=== PATIENT | female | born 1975 | race Two or more races ===

== ENCOUNTER 2019-02-23 06:12 | Inpatient (IN) | payer OTHER ==
[2019-02-20 12:22] VITALS: BMI 32.0
[2019-02-23] MEDS ORDERED: fentaNYL CITRATE 250 MCG/5 ML VIAL ONE (07:03)
[2019-02-23] MEDS ORDERED: PROPOFOL 20 ML ONE ×2 (07:04)
[2019-02-23] MEDS ORDERED: SUCCINYLCHOLINE CHLORIDE 200 MG/10 ML SYRINGE ONE (07:04)
[2019-02-23] MEDS ORDERED: ROCURONIUM BROMIDE 50 MG/5 ML SYRINGE ONE (07:04)
[2019-02-23] MEDS ORDERED: MIDAZOLAM HCL 2 MG/2 ML SINGLE DOSE VIAL ONE ×3 (07:04→07:25)
[2019-02-23] MEDS ORDERED: KETOROLAC TROMETHAMINE 30 MG/1 ML VIAL ONE (07:06)
[2019-02-23] MEDS ORDERED: SODIUM CHLORIDE 0.9% P/F 10 ML VIAL IJ ONE (07:06)
[2019-02-23] MEDS ORDERED: DEXAMETHASONE SOD PHOSPHATE 4 MG/1 ML VIAL ONE (07:06)
[2019-02-23] MEDS ORDERED: LIDOCAINE HCL/PF 2% SDV 5ML VIAL ONE (07:06)
[2019-02-23] MEDS ORDERED: ceFAZolin SODIUM 1 GM VIAL ONE (07:06)
[2019-02-23] MEDS ORDERED: DEXAMETHASONE SOD PHOSPHATE/PF 10 MG/ML SDV ONE ×2 (07:24→08:11)
[2019-02-23] MEDS ORDERED: VASOPRESSIN 20 UNITS/ML VIAL IV ONE (07:27)
--- NOTE | 2019-02-23 07:37 | HP ---
History & Physical Update - History History: No Change - Physical Physical: No Change - Assessment Assessment: No Change - Plan Plan: No Change (Full H&P in paper chart from 02/19/19)
[2019-02-23] MEDS ORDERED: ceFAZolin 2 GRAM PREMIX BAG IVPB ONE ×2 (08:16→08:20)
[2019-02-23] MEDS ORDERED: GLYCOPYRROLATE 0.2 MG/1 ML VIAL ONE (08:46)
[2019-02-23] MEDS ORDERED: NEOSTIGMINE METHYLSULFATE 0.5 MG/ML - 10 ML MDV ONE (08:46)
[2019-02-23] MEDS ORDERED: ONDANSETRON 4 MG/2 ML VIAL IVPUSH PRN (09:48)
[2019-02-23] MEDS ORDERED: SIMETHICONE 80 MG TAB.CHEW (FP) PO PRN (09:48)
[2019-02-23] MEDS ORDERED: oxyCODONE HCL 5 MG TABLET PO PRN ×2 (09:48)
[2019-02-23] MEDS ORDERED: DOCUSATE SODIUM 100 MG CAPSULE (FP) PO PRN (09:48)
[2019-02-23] MEDS ORDERED: ACETAMINOPHEN 325 MG TABLET (FP) PO PRN (09:48)
[2019-02-23] MEDS ORDERED: BISACODYL 5 MG TABLET.DR (FP) PO PRN (09:48)
[2019-02-23] MEDS ORDERED: CEFAZOLIN 1 GM/D5W 1 GM/50 ML BAG IVPB SCH (10:00)
[2019-02-23] MEDS ORDERED: EMPAGLIFLOZIN PO SCH (10:00)
[2019-02-23] MEDS ORDERED: [UNRECOGNIZED DRUG - OTHER] PO SCH (10:00)
[2019-02-23] MEDS ORDERED: LINAGLIPTIN PO SCH (10:00)
--- NOTE | 2019-02-23 10:06 | OP ---
Operative Note - Note: Operative Date: 02/23/19 Pre-Operative Diagnosis: Fibroid uterus Operation: Abdominal myomectomy Post-Operative Diagnosis: Same as Pre-op Surgeon: Yecenia Garcia Ceramic Sprayer: Pilo Obrien Anesthesiologist/HYDRODYNAMICS TEACHER: Uriel Bernabe Anesthesia: General Operative Report Dictated: Yes
--- NOTE | 2019-02-23 10:07 | SURG ---
Surgery Fixing Carpenter Note Fixing Carpenter: Pilo Obrien PA-C Date of Service: 02/23/19 Diagnosis: Fibroid uterus Procedure: Abdominal myomectomy I was present for the entirety of the operative procedure. For further detail, please refer to operative report. Visit type - Case Type Case Type: Scheduled - Emergency Emergency Visit: No - New patient This patient is new to me today: Yes Date on this admission: 02/23/19 - Critical Care Critical Care patient: No
--- NOTE | 2019-02-23 11:45 | OP ---
Operative Note - Note: Operative Date: 02/23/19 Pre-Operative Diagnosis: Leiomyomatous Uterus. Abdominal pain Operation: Abdominal myomectomy Findings: 6 myomas removed Post-Operative Diagnosis: Same as Pre-op Surgeon: Yecenia Garcia Field Artillery Targeting Technician: Pilo Obrien Anesthesia: General Specimens Removed: myomas Estimated Blood Loss (mls): 150 Operative Report Dictated: Yes
[2019-02-23] MEDS: FERROUS SO4 325 MG TABLET (FP) PO SCH (12:10)
[2019-02-23] MEDS: LACTATED RINGERS SOLUTION 1,000 ML IV SCH ×2 (12:10→22:19)
[2019-02-23] MEDS: CYANOCOBALAMIN 1,000 MCG TABLET (FP) PO SCH (12:10)
[2019-02-23] MEDS: INSULIN SLIDING SCALE (NOVOLOG) 1 VIAL SQ SCH ×2 (12:10→17:14)
[2019-02-23] MEDS: IBUPROFEN 800 MG/8 ML IJ IVPB PRN ×2 (14:20→22:19)
[2019-02-23 20:42] LABS: HEMATOCRIT 35.2 % (32.4-45.2); HEMOGLOBIN 11.2 GM/dL (10.7-15.3); MCH 27.5 pg (25.7-33.7); MCHC 31.9 g/dl (32.0-36.0); MEAN CELL VOLUME 86.1 fl (80-96); MEAN PLT VOLUME 8.8 fl (7.5-11.1); PLATELET COUNT 235 K/MM3 (134-434); RBC 4.09 M/mm3 (3.60-5.2); RDW 17.4 % (11.6-15.6); WHITE BLOOD COUNT 11.8 K/mm3 (4.0-10.0)
[2019-02-23 21:00] LABS: BLOOD UREA NITROGEN 14.2 mg/dL (7-18); CALCIUM 8.4 mg/dL (8.5-10.1); CREATININE 0.8 mg/dL (0.55-1.3); POTASSIUM 3.9 mmol/L (3.5-5.1)
[2019-02-23] MEDS: CEFAZOLIN 1 GM/D5W 1 GM/50 ML BAG IVPB SCH (21:10)
[2019-02-24] MEDS: CEFAZOLIN 1 GM/D5W 1 GM/50 ML BAG IVPB SCH (06:01)
[2019-02-24 08:03] LABS: HEMATOCRIT 30.3 % (32.4-45.2); HEMOGLOBIN 9.9 GM/dL (10.7-15.3); MCH 27.8 pg (25.7-33.7); MCHC 32.7 g/dl (32.0-36.0); MEAN CELL VOLUME 85.2 fl (80-96); MEAN PLT VOLUME 8.5 fl (7.5-11.1); PLATELET COUNT 216 K/MM3 (134-434); RBC 3.55 M/mm3 (3.60-5.2); RDW 17.4 % (11.6-15.6); WHITE BLOOD COUNT 12.1 K/mm3 (4.0-10.0)
[2019-02-24] MEDS: INSULIN SLIDING SCALE (NOVOLOG) 1 VIAL SQ SCH ×2 (08:10→12:13)
[2019-02-24 08:24] LABS: CREATININE 0.7 mg/dL (0.55-1.3)
[2019-02-24] MEDS: IBUPROFEN 800 MG/8 ML IJ IVPB PRN (08:31)
[2019-02-24] MEDS: FERROUS SO4 325 MG TABLET (FP) PO SCH (09:54)
[2019-02-24] MEDS ORDERED: ENOXAPARIN NA (PORCINE) 40 MG/0.4 ML DISP.SYRIN SQ SCH (10:00)
[2019-02-24] MEDS ORDERED: ACETAMINOPHEN 325 MG TABLET (FP) PO PRN (10:21)
--- NOTE | 2019-02-24 10:27 | PN ---
Progress Note (short form) - Note Progress Note: POD1, s/p Abdominal myomectomy Pt seen and examined. Reports she has some pain controlled with current regimen. Has not been oob. Mittal in place. Tolerating po with no n/v. Denies cp/ sob. Vital Signs Temp 98.5 F 02/24/19 06:00 Pulse 68 02/24/19 06:00 Resp 18 02/24/19 06:00 BP 116/56 L 02/24/19 06:00 Pulse Ox 98 02/23/19 21:00 Intake & Output 02/23/19 02/23/19 02/24/19 11:59 23:59 11:59 Intake Total 2100 1000 1250 Output Total 1200 1600 700 Balance 900 -600 550 Intake: IV 2100 750 1250 Lactated Ringers Solution 750 1250 1,000 ml @ 125 mls/hr IV ASDIR LIBRADO Rx#: [id number] IVPB 250 Output: Urine 1050 1600 700 Mittal 1600 700 Estimated Blood Loss 150 Other: Voiding Method Indwelling Catheter Bowel Movement No No CBC, BMP 02/24/19 07:30 02/24/19 07:30 Gen: awake, alert, nad Resp: unlabored on RA Abdo: soft, minimally ttp near incision site. Dressing with moderate serosanguinous drainage, removed. Steri-strips in place, no erythema or drainage. No active bleeding. A/P: 43 y/o F w/ PMHx DM, leiomyomas/pelvic pain now POD 1, s/p open abdominal myomectomy. afebrile, vss Labs stable Remove mittal, tov Pain control with Oxycodone 5/10mg q4h prn, 1g tylenol po prn, 800mg iv ibuprofen q8hrs prn DVT prophylaxis with b/l scds and lovenox 40mg qd OOb ad george Advance diet as tolerated Zofran prn nausea/vomiting Monitor VS per protocol Plan for d/c tomorrow d/w attending Dr Garcia
[2019-02-24] MEDS: LACTATED RINGERS SOLUTION 1,000 ML IV SCH (10:45)
[2019-02-24] MEDS: CYANOCOBALAMIN 1,000 MCG TABLET (FP) PO SCH (10:55)
--- NOTE | 2019-02-24 16:02 | PATH ---
Surgical Pathology Report Patient Name: SRAVANTHI HITCHCOCK [facility]. Rec. #: [id number] /Age/Gender: 1975 (Age: 43) / F Account: [id number] Location: [facility] OBS/INTERNATIONAL ACCOUNTING MANAGER Taken: 02/23/2019 Received: 02/23/2019 Reported: 02/24/2019 Physicians: Yecenia Garcia M.D. Specimen(s) Received UTERINE FIBROIDS Clinical History Uterine fibroids Final Diagnosis UTERINE FIBROIDS, ABDOMINAL MYOMECTOMY: 100 G, LEIOMYOMA(TA) AND ADENOMYOSIS. Electronically Signed Matilde Alberts M.D. Gross Description Received in formalin labeled "uterine fibroids," is a 100 g aggregate of 7 veronica, rubbery nodules ranging from 0.9-5.7 cm in greatest dimension. Sectioning reveals veronica, rubbery parenchyma with whorled architecture. No areas of hemorrhage or necrosis are identified. Precision Machinist sections are submitted in 7 cassettes as follows: 1-4-smaller fibroids; 5-7-largest fibroid. /02/23/2019 [facility]02/23/2019
[2019-02-24 17:58] VITALS: BP 116/70; PULSE 80; TEMP 98
--- NOTE | 2019-02-26 07:28 | DS ---
Physical Exam: SUBJECTIVE: Patient seen and examined. Reports she has some pain controlled with current regimen. Has not been oob. Vizcaino in place. Tolerating po with no n/ v. Denies cp/sob. OBJECTIVE: Vital Signs Temperature 98.0 F 02/24/19 16:30 Pulse Rate 80 02/24/19 16:30 Respiratory Rate 18 02/24/19 16:30 Blood Pressure 116/70 02/24/19 16:30 O2 Sat by Pulse Oximetry (%) 98 02/23/19 21:00 PHYSICAL EXAM Gen: awake, alert, nad Resp: unlabored on RA Abdo: soft, minimally ttp near incision site. Dressing with moderate serosanguinous drainage, removed. Steri-strips in place, no erythema or drainage. No active bleeding. LABS CBC,CMP WBC 12.1 K/mm3 (4.0-10.0) H 02/24/19 07:30 RBC 3.55 M/mm3 (3.60-5.2) L 02/24/19 07:30 Hgb 9.9 GM/dL (10.7-15.3) L 02/24/19 07:30 Hct 30.3 % (32.4-45.2) L 02/24/19 07:30 MCV 85.2 fl (80-96) 02/24/19 07:30 MCH 27.8 pg (25.7-33.7) 02/24/19 07:30 MCHC 32.7 g/dl (32.0-36.0) 02/24/19 07:30 RDW 17.4 % (11.6-15.6) H 02/24/19 07:30 Plt Count 216 K/MM3 (134-434) 02/24/19 07:30 MPV 8.5 fl (7.5-11.1) 02/24/19 07:30 Sodium 143 mmol/L (136-145) 02/24/19 07:30 Potassium 4.0 mmol/L (3.5-5.1) 02/24/19 07:30 Chloride 110 mmol/L (98-107) H 02/24/19 07:30 Carbon Dioxide 27 mmol/L (21-32) 02/24/19 07:30 Anion Gap 6 MMOL/L (8-16) L 02/24/19 07:30 BUN 13.0 mg/dL (7-18) 02/24/19 07:30 Creatinine 0.7 mg/dL (0.55-1.3) 02/24/19 07:30 Est GFR (CKD-EPI)AfAm 122.13 02/24/19 07:30 Est GFR (CKD-EPI)NonAf 105.37 02/24/19 07:30 POC Glucometer 140 UNITS (80-120) 02/24/19 16:36 Random Glucose 143 mg/dL (74-106) H 02/24/19 07:30 Calcium 8.0 mg/dL (8.5-10.1) L 02/24/19 07:30 HOSPITAL COURSE: Date of Admission:02/23/19 Date of Discharge: 02/26/19 The patient was admitted to the Med-Surg Unit after an elective repair of her leiomyomas/pelvic pain. Now, s/p open abdominal hysterectomy. Pain management was achieved with a narcotic and non-narcotic oral and IV regimen. POD #1, the patient passed flatus and diet was advanced. Vizcaino was removed and patient passed trial of void. Hemoglobin and hematocrit were monitored as well as vitals and remained stable throughout admission. Janey- operative IV ABX were administered. DVT prophylaxis was achieved with Lovenox 40mg qd, SCDs and early ambulation. The patient ambulated the halls without issue. Narcotic scripts were checked with [facility] OF TRAINING prior to e-scribe. The discharge instructions and an oral pain management plan were reviewed with the patient. All questions answered. Above plan discussed with Dr. Garcia and agreed. Minutes to complete discharge: 20 Visit type - Case Type Case Type: Scheduled - Emergency Emergency Visit: No - New patient This patient is new to me today: Yes Date on this admission: 02/26/19 - Critical Care Critical Care patient: No
--- NOTE | 2019-02-27 19:00 | OP ---
DATE OF OPERATION: 02/23/2019 PREOPERATIVE DIAGNOSIS: Leiomyomatous uterus, abdominal pain. OPERATION: Abdominal myomectomy, lysis of adhesions. FINDINGS: Thick myomas were noted from the uterus posterior and anterior aspect of the uterus. SURGEON: Yecenia Garcia MD PLANT SUPERVISOR: HAYLIE Sanchez ANESTHESIA: General. PROCEDURE: Patient was taken to the operating room, placed in supine position, prepped and draped in the usual sterile fashion. Pfannenstiel skin incision was made through the patient's previous scar. Cautery was then used to go through layers of abdominal wall to the level of the fascia. Fascia was cut in the midline, and cautery was then used to open the fascia in smiling fashion. Kochers were then used to bluntly and sharply dissect the rectus muscle off the fascia. Muscle was split in the midline. Peritoneal cavity was then entered. Peritoneal cavity was then opened. Upon entry, the uterus was noted to be attached to the anterior aspect of the bladder. Sharp dissection was then done. Lysis of adhesions anteriorly was done to the uterus to elevate it out of the pelvis. Multiple myomas were palpated, and cautery was then used to remove the large 5-cm myoma, which was attached to the fundus of the uterus. Also multiple anterior myomas were also removed using cautery and blunt and sharp technique. The myomas were enucleated out. Posterior myoma approximately 2 cm was also removed from the posterior aspect of the uterus. After all myomas had been enucleated, 6 of them were removed. Incisions were then closed. The muscle was closed using 0 Vicryl suture in continuous fashion, and in each incision serosa was closed using 2-0 V-Lock suture. Hemostasis was achieved. All incisions were closed and hemostatic. Irrigation was then done. Interceed was placed over the uterus, and the uterus was then anteriorized. Abdominal cavity cleaned with clean lap pads. Peritoneum closed using 0 Vicryl suture in a percutaneous fashion. Fascia was then closed using 0 Vicryl suture in 2 parts. Skin was then closed using 3-0 Vicryl in subcuticular fashion. Wound was washed and dressed. Patient tolerated procedure well and was taken to recovery room in stable condition. YECENIA GARCIA M.D. [id number]
== END 2019-02-24 17:15 | disposition home or self-care (01) | DRG 743 ==
LOC: JSAMEDAYSX 06:12 → J3W 12:13
PROVIDERS: ADMIT Obstetrics & Gynecology; ATTEND Obstetrics & Gynecology
PROC: 0UN90ZZ Release Uterus, Open Approach (ICD-10-PCS; 2019-02-23)
PROC: 0UB90ZZ Excision of Uterus, Open Approach (ICD-10-PCS; principal; 2019-02-23 07:30)
DX: D25.9 Leiomyoma of uterus, unspecified (principal); R10.2 Pelvic and perineal pain; N80.0 Endometriosis of uterus; N73.6 Female pelvic peritoneal adhesions (postinfective)
CPT/HCPCS: 36415; 80048; 82962; 85027; 86850; 86900; 86901; 88305-TC; 94760